=== PATIENT | female | born 1985 | race American Indian/Alaskan Native ===

== ENCOUNTER 2020-08-17 17:39 | Emergency (ER) | payer MEDICAID ==
[2020-08-17 18:15] VITALS: BP 113/64
--- NOTE | 2020-08-17 20:12 | Event Note ---
ED Screening Note ED Screening Note: lower abd cramping +nausea she is concern she may be no v/d no dysuria no abnormal discharge LNMP 07/07/2020 PMHx HTN, amlodipine, enalapril no allergies to meds /P:3/A:0 This initial assessment/diagnostic orders/clinical plan/treatment(s) is/are subject to change based on patients health status, clinical progression and re- assessment by fellow clinical providers in the ED. Further treatment and workup at subsequent clinical providers discretion. Patient/guardian urged not to elope from the ED as their condition may be serious if not clinically assessed and managed. Initial orders include: labs, UA
[2020-08-17 20:44] LABS: Bacteria,Urine 1+ /HPF (Negative); Bilirubin,Urine NEG (Negative); Blood,Urine NEG (Negative); Color,Urine Yellow (Yellow); Mucus,Urine FEW /HPF; Urobilinogen,Urine < 2.0 mg/dL (<2.0)
[2020-08-17 21:11] LABS: Basophils # (Auto) 0.2 K/mm3 (0.0-0.1); Basophils % (Auto) 1.5 % (0.0-1.8); Eosinophils # (Auto) 0.2 K/mm3 (0.0-0.4); Eosinophils % (Auto) 2.3 % (0.0-4.3); Lymphocytes # (Auto) 2.4 K/mm3 (1.2-5.4); Lymphocytes % (Auto) 22.8 % (13.4-35.0); Mean Corpuscular HGB Conc 29 % (30-34); Monocytes # (Auto) 0.8 K/mm3 (0.0-0.8); Monocytes % (Auto) 7.8 % (0.0-7.3); Platelet Count 358 K/mm3 (140-440); Red Blood Count 4.59 M/mm3 (3.65-5.03)
[2020-08-17 21:14] LABS: Hematocrit 28.3 % (30.3-42.9); Hemoglobin 8.1 gm/dl (10.1-14.3); Mean Corpuscular Volume 62 fl (79-97); Red Cell Distribution Width 20.6 % (13.2-15.2)
[2020-08-17 21:37] LABS: Alanine Aminotransferase 9 units/L (7-56); Albumin 4.3 g/dL (3.9-5); BUN/Creatinine Ratio 14; Blood Urea Nitrogen 13 mg/dL (7-17); Calcium 10.1 mg/dL (8.4-10.2); Hemolysis Index 1
== END 2020-08-18 00:10 | disposition left against medical advice (07) ==
LOC: ED 17:39
DX: R10.30 Lower abdominal pain, unspecified (principal)
CPT/HCPCS: 36415; 80053; 81001; 84702; 85025; 87076; 87086; 87186

== ENCOUNTER 2020-12-27 01:17 | Emergency (ER) | payer OTHER ==
[2020-12-27 02:03] LABS: Bacteria,Urine 1+ /HPF (Negative); Bilirubin,Urine NEG (Negative); Blood,Urine NEG (Negative); Color,Urine Yellow (Yellow)
[2020-12-27] MEDS ORDERED: SODIUM CHLORIDE 0.9% 1000 ML 1,000 ML IV ONE (02:54)
[2020-12-27] MEDS ORDERED: MORPHINE 2 MG/1 ML INJ IV ONE (02:54)
[2020-12-27] MEDS ORDERED: ONDANSETRON 4 MG/2 ML INJ IV ONE (02:54)
[2020-12-27 03:12] LABS: Hematocrit 27.6 % (30.3-42.9); Hemoglobin 8.5 gm/dl (10.1-14.3); Mean Corpuscular HGB Conc 31 % (30-34); Mean Corpuscular Volume 71 fl (79-97); Platelet Count 413 K/mm3 (140-440); Red Blood Count 3.87 M/mm3 (3.65-5.03)
[2020-12-27 03:26] LABS: Alanine Aminotransferase 17 units/L (7-56); Albumin 3.6 g/dL (3.9-5); BUN/Creatinine Ratio 11; Blood Urea Nitrogen 10 mg/dL (7-17); Calcium 8.6 mg/dL (8.4-10.2); Hemolysis Index 5
[2020-12-27 03:27] LABS: Red Cell Distribution Width 20.6 % (13.2-15.2)
[2020-12-27] MEDS ORDERED: cefTRIAXone/NS 1 GM/50 ML 1 GM/50 ML BAG IV ONE (04:33)
[2020-12-27 06:35] LABS: Anisocytosis 1+; Total Cells Counted 100
[2020-12-27 06:36] LABS: Hypochromasia 1+; Platelet Estimate Consistent w Auto
[2020-12-27 06:40] VITALS: BP 122/74
== END 2020-12-27 06:39 | disposition home or self-care (01) ==
LOC: ED 01:17
DX: K86.0 Alcohol-induced chronic pancreatitis (principal); N39.0 Urinary tract infection, site not specified; I10 Essential (primary) hypertension; Z79.899 Other long term (current) drug therapy
CPT/HCPCS: 36415; 80053; 81001; 83690; 84703; 85007; 85025; 96361; 96365; 96375; 99283; J0696; J2270; J2405; J7030